=== PATIENT | female | born 1970 | race Caucasian/White ===

== ENCOUNTER 2020-08-04 13:44 | Emergency (ER) | payer OTHER ==
[~2020-08-04] VITALS: Ht 154.9 cm; Wt 79.4 kg
[2020-08-04 13:47] VITALS: BP 126/90; Ht 154.9 cm; Wt 79.4 kg
== END 2020-08-04 16:21 | disposition home or self-care (01) ==
LOC: ED 13:44
DX: U07.1 COVID-19 (principal); J12.89 Other viral pneumonia; I10 Essential (primary) hypertension; E78.00 Pure hypercholesterolemia, unspecified; K21.9 Gastro-esophageal reflux disease without esophagitis